=== PATIENT | female | born 1950 | race African-American/Black ===

== ENCOUNTER 2018-01-03 02:22 | Inpatient (IN) | payer MEDICARE, MEDICAID ==
[~2018-01-03] VITALS: Ht 170.2 cm; Wt 108.5 kg
--- NOTE | ~2018-01-03 | OP ---
PATIENT NAME: PEEWEE VANG MEDICAL RECORD: [id number] :52 LOCATION:D. D.2128 ADMISSION DATE:01/03/18 SURGEON: ISIDORO RAMIREZ MD DATE OF OPERATION: 01/04/2018 PREOPERATIVE DIAGNOSES: 1. Gallstones. 2. Elevated LFTs. 3. Coronary artery disease. 4. Diabetes mellitus. 5. Hypertension. POSTOPERATIVE DIAGNOSES: 1. Gallstones. 2. Elevated LFTs. 3. Coronary artery disease. 4. Diabetes mellitus. 5. Hypertension. PROCEDURES: 1. Laparoscopic cholecystectomy with intraoperative cholangiogram. 2. Fluoroscopic interpretation. SURGEON: Isidoro Ramirez MD REPORT OF PROCEDURE: The patient's abdomen was prepped and draped in sterile fashion. A cutdown was made on the superior aspect of the umbilicus. Electrocautery was used to dissect through the subcutaneous tissues, 0 Vicryls were placed in the fascia bilaterally and the fascia was incised with 15-blade. I then bluntly entered the peritoneal cavity and placed a 12-mm [place] port. Under direct visualization, a 5-mm trocar was placed in the epigastrium and 2 more 5-mm trocars were placed in the right subcostal region. The gallbladder was grasped and elevated. There were no signs of any inflammatory changes present. The cystic artery and cystic duct were dissected free. The cystic duct was clipped once proximally and a small opening was made in the cystic duct. There was spillage of some black very small stones as we pushed on the common bile duct. We then inserted a cholangiocath and performed intraoperative cholangiogram. Initially, there was some spillage of contrast into the duodenum, but stone fill in that area and blocked the remaining flow. The stone was present at the ampulla and it was too large to be pushed through with hydraulic pressure. At this point, the cholangiocath was removed. Clips were placed on the cystic duct and this was transected. The cystic artery was then clipped proximally and distally and transected in standard fashion. The gallbladder was taken off the liver bed using electrocautery and placed into the right upper quadrant. Any bleeding from the liver bed was then treated with electrocautery. At this point, the ports and insufflation were then removed and the gallbladder was taken out through the umbilicus. The umbilical fascia was closed with interrupted 0 Vicryls times 3. The wounds were then irrigated out with normal saline and infused with 10 mL of 0.25% Marcaine with epinephrine. The skin incisions were all closed with subcutaneous 5-0 Monocryl and dressed appropriately. COMPLICATIONS: None. CONDITION: Stable. OPERATIVE REPORT [id number] PEEWEE VANG ANESTHESIA: General endotracheal and local. BLOOD LOSS: Minimal. TRANSINT:[id number] Voice Confirmation ID: [id number] DOCUMENT ID: [id number] ISIDORO RAMIREZ MD CC: LEON MOE MD and VESTA DIAZ DO [id number] DICTATION DATE: 01/04/18 1350 EMBEDDED LINUX ENGINEER: 01/04/18 1431 ADM IN [facility] [address] [id number]
[2018-01-03 02:40] VITALS: BP 145/86; BMI 36.0
[2018-01-03] MEDS ORDERED: NORVASC5 MG PO (03:02)
[2018-01-03] MEDS ORDERED: KLONOPIN1 MG PO (03:03)
[2018-01-03] MEDS ORDERED: DEXILANT60 MG PO (03:04)
[2018-01-03] MEDS ORDERED: ASPIRIN EC81 M1 PO (03:05)
[2018-01-03] MEDS ORDERED: PULMICORT180 MCG/AE INH (03:05)
[2018-01-03] MEDS ORDERED: GLIPIZIDE10 MG PO (03:06)
[2018-01-03] MEDS ORDERED: NORCO 7.5/325 T1 TA1 PO (03:07)
[2018-01-03] MEDS ORDERED: COMBIVENT RESPIM4 GM INH (03:10)
[2018-01-03] MEDS ORDERED: SYNTHROID100 MCG PO (03:11)
[2018-01-03] MEDS ORDERED: LISINOPRIL2.5 MG PO (03:11)
[2018-01-03] MEDS ORDERED: CLARITIN 10 MG10 MG PO (03:12)
[2018-01-03] MEDS ORDERED: LOPRESSOR25 MG PO (03:12)
[2018-01-03] MEDS ORDERED: MOBIC7.5 MG PO (03:12)
[2018-01-03] MEDS ORDERED: POTASSIUM CHLO10 ME1 PO (03:14)
[2018-01-03] MEDS ORDERED: MULTIPLE VITAMI1 TA1 PO (03:14)
[2018-01-03 04:00] VITALS: BP 121/54
[2018-01-03 07:00] VITALS: BP 109/56
[2018-01-03 10:54] LABS: BASOPHILS 0.1 % (0-2); EOSINOPHILS 4.4 % (0-7); HEMATOCRIT 43.5 % (36.0-48.0); IMMATURE GRANULOCYTES 0.4 % (0-5); LYMPHOCYTES 6.4 % (15-50); MCH 27.2 pg (26.0-34.0); MCHC 32.2 g/dL (31.0-37.0); MCV 84.5 fL (80.0-100.0); MEAN PLATELET VOLUME 10.4 fL (7.4-10.4); MONOCYTES 9.3 % (2-11); NEUTROPHILS 79.4 % (40-80); PLATELET COUNT 178 10x3/uL (130-400); RBC 5.15 10x6/uL (4.00-5.40); RDW 15.2 % (11.5-14.5); WBC 6.9 10x3/uL (4.8-10.8)
[2018-01-03 11:03] LABS: INR 1.26 (0.85-1.17); PROTIME 15.3 SECONDS (11.6-15.0)
[2018-01-03 11:07] LABS: ALBUMIN 3.1 g/dL (3.4-5.0); ANION GAP 15.6 mmol/L (8-16); BILIRUBIN - TOTAL 4.89 mg/dL (0.2-1.3); CALCIUM 8.9 mg/dL (8.5-10.1); CARBON DIOXIDE 22.6 mmol/L (21.0-32.0); CREATININE - SERUM 1.5 mg/dL (0.6-1.3); POTASSIUM - SERUM 4.2 mmol/L (3.5-5.1); PROTEIN - SERUM 6.9 g/dL (6.4-8.2)
[2018-01-03 18:57] LABS: APPEARANCE HAZY (CLEAR); BILIRUBIN 3+ (NEGATIVE); COLOR AMBER (YELLOW); GLUCOSE 1000 mg/dL (NEGATIVE); KETONE NEGATIVE (NEGATIVE); NITRITE NEGATIVE (NEGATIVE); PROTEIN NEGATIVE (NEGATIVE)
[2018-01-03 19:00] LABS: BACTERIA MODERATE /hpf (NONE SEEN); EPITHELIAL CELLS OCC /hpf (0-5); GRANULAR CAST RARE /lpf (NONE SEEN); HYALINE CAST RARE /lpf (NONE SEEN); RED CELLS - URINE OCC /hpf (0-5)
[2018-01-03 21:39] VITALS: BP 129/74
[2018-01-04] VITALS (9 sets, daily range): BP systolic 91–132; BP diastolic 62–85; Ht 170.2 cm; Wt 108.5 kg
[2018-01-04 05:23] LABS: BASOPHILS 0.3 % (0-2); EOSINOPHILS 6.3 % (0-7); HEMATOCRIT 39.7 % (36.0-48.0); HEMOGLOBIN 12.7 g/dL (12-16); IMMATURE GRANULOCYTES 0.3 % (0-5); MCH 26.7 pg (26.0-34.0); MCV 83.6 fL (80.0-100.0); MEAN PLATELET VOLUME 10.6 fL (7.4-10.4); MONOCYTES 11.5 % (2-11); NEUTROPHILS 69.6 % (40-80); PLATELET COUNT 166 10x3/uL (130-400); RBC 4.75 10x6/uL (4.00-5.40); RDW 15.3 % (11.5-14.5)
[2018-01-04 05:27] LABS: WBC 3.5 10x3/uL (4.8-10.8)
[2018-01-04 05:35] LABS: ALBUMIN 2.7 g/dL (3.4-5.0); ANION GAP 12.5 mmol/L (8-16); BILIRUBIN - TOTAL 3.03 mg/dL (0.2-1.3); CALCIUM 8.4 mg/dL (8.5-10.1); CARBON DIOXIDE 23.8 mmol/L (21.0-32.0); CREATININE - SERUM 1.3 mg/dL (0.6-1.3); POTASSIUM - SERUM 4.3 mmol/L (3.5-5.1); PROTEIN - SERUM 6.2 g/dL (6.4-8.2)
[2018-01-05 04:00] VITALS: BP 176/89
[2018-01-05 04:51] LABS: BASOPHILS 0.1 % (0-2); EOSINOPHILS 1.3 % (0-7); HEMATOCRIT 40.3 % (36.0-48.0); HEMOGLOBIN 12.8 g/dL (12-16); IMMATURE GRANULOCYTES 0.6 % (0-5); LYMPHOCYTES 6.8 % (15-50); MCH 26.4 pg (26.0-34.0); MCHC 31.8 g/dL (31.0-37.0); MCV 83.3 fL (80.0-100.0); MEAN PLATELET VOLUME 10.4 fL (7.4-10.4); MONOCYTES 15.6 % (2-11); NEUTROPHILS 75.6 % (40-80); PLATELET COUNT 191 10x3/uL (130-400); RBC 4.84 10x6/uL (4.00-5.40)
[2018-01-05 04:58] LABS: WBC 6.9 10x3/uL (4.8-10.8)
[2018-01-05 05:08] LABS: ALBUMIN 2.6 g/dL (3.4-5.0); ANION GAP 12.5 mmol/L (8-16); BILIRUBIN - TOTAL 4.33 mg/dL (0.2-1.3); CALCIUM 8.3 mg/dL (8.5-10.1); CARBON DIOXIDE 25.7 mmol/L (21.0-32.0); CREATININE - SERUM 1.5 mg/dL (0.6-1.3); POTASSIUM - SERUM 4.2 mmol/L (3.5-5.1); PROTEIN - SERUM 6.2 g/dL (6.4-8.2)
[2018-01-05 08:51] VITALS: BP 121/64
[2018-01-05 11:29] VITALS: BP 111/56
[2018-01-05 16:50] VITALS: BP 125/78
[2018-01-05 22:25] VITALS: BP 128/71
[2018-01-06 01:27] VITALS: BP 153/99
[2018-01-06 06:28] VITALS: BP 157/91
[2018-01-06 07:03] LABS: BASOPHILS 0.3 % (0-2); EOSINOPHILS 0.9 % (0-7); HEMATOCRIT 37.2 % (36.0-48.0); IMMATURE GRANULOCYTES 1.2 % (0-5); LYMPHOCYTES 8.1 % (15-50); MCH 26.9 pg (26.0-34.0); MCHC 32.3 g/dL (31.0-37.0); MCV 83.4 fL (80.0-100.0); MEAN PLATELET VOLUME 10.3 fL (7.4-10.4); MONOCYTES 14.2 % (2-11); NEUTROPHILS 75.3 % (40-80); PLATELET COUNT 174 10x3/uL (130-400); RBC 4.46 10x6/uL (4.00-5.40); RDW 15.4 % (11.5-14.5); WBC 6.9 10x3/uL (4.8-10.8)
[2018-01-06 07:20] LABS: ALBUMIN 2.4 g/dL (3.4-5.0); ANION GAP 10.7 mmol/L (8-16); BILIRUBIN - TOTAL 5.87 mg/dL (0.2-1.3); CALCIUM 8.4 mg/dL (8.5-10.1); CARBON DIOXIDE 26.5 mmol/L (21.0-32.0); POTASSIUM - SERUM 4.2 mmol/L (3.5-5.1); PROTEIN - SERUM 6.1 g/dL (6.4-8.2)
[2018-01-06 07:27] LABS: CREATININE - SERUM 1.1 mg/dL (0.6-1.3)
[2018-01-06 08:12] VITALS: BP 108/53
[2018-01-06 12:15] VITALS: BP 114/64
[2018-01-06 16:42] VITALS: BP 113/67
[2018-01-06 19:00] VITALS: BP 136/82
[2018-01-07 00:35] VITALS: BP 135/95
[2018-01-07 04:00] VITALS: BP 105/66
[2018-01-07 05:39] LABS: BASOPHILS 0.2 % (0-2); EOSINOPHILS 1.3 % (0-7); HEMATOCRIT 35.9 % (36.0-48.0); HEMOGLOBIN 11.5 g/dL (12-16); IMMATURE GRANULOCYTES 3.1 % (0-5); LYMPHOCYTES 11.9 % (15-50); MCH 26.4 pg (26.0-34.0); MCV 82.5 fL (80.0-100.0); MEAN PLATELET VOLUME 10.6 fL (7.4-10.4); MONOCYTES 12.9 % (2-11); NEUTROPHILS 70.6 % (40-80); RBC 4.35 10x6/uL (4.00-5.40); RDW 15.2 % (11.5-14.5); WBC 8.3 10x3/uL (4.8-10.8)
[2018-01-07 05:59] LABS: ALBUMIN 2.4 g/dL (3.4-5.0); ANION GAP 11.6 mmol/L (8-16); BILIRUBIN - TOTAL 7.5 mg/dL (0.2-1.3); CALCIUM 8.4 mg/dL (8.5-10.1); CARBON DIOXIDE 25.5 mmol/L (21.0-32.0); POTASSIUM - SERUM 4.1 mmol/L (3.5-5.1); PROTEIN - SERUM 6.1 g/dL (6.4-8.2)
[2018-01-07 06:00] LABS: PLATELET COUNT 212 10x3/uL (130-400)
[2018-01-07 08:35] VITALS: BP 130/67
[2018-01-07 12:40] VITALS: BP 118/63
[2018-01-07 15:23] VITALS: BP 145/75
[2018-01-07 21:38] VITALS: BP 144/76
[2018-01-08 01:44] VITALS: BP 118/58
[2018-01-08 05:40] VITALS: BP 128/66
[2018-01-08 10:38] LABS: ALBUMIN 2.2 g/dL (3.4-5.0); ANION GAP 11.9 mmol/L (8-16); BILIRUBIN - TOTAL 3.9 mg/dL (0.2-1.3); CALCIUM 8.2 mg/dL (8.5-10.1); CARBON DIOXIDE 24.1 mmol/L (21.0-32.0)
[2018-01-08 11:33] LABS: BASOPHILS 0.9 % (0-2); EOSINOPHILS 1.9 % (0-7); HEMATOCRIT 35.5 % (36.0-48.0); HEMOGLOBIN 11.7 g/dL (12-16); IMMATURE GRANULOCYTES 5.6 % (0-5); LYMPHOCYTES 15.2 % (15-50); MCH 27.1 pg (26.0-34.0); MCV 82.2 fL (80.0-100.0); MEAN PLATELET VOLUME 10.5 fL (7.4-10.4); MONOCYTES 9.7 % (2-11); NEUTROPHILS 66.7 % (40-80); PLATELET COUNT 206 10x3/uL (130-400); RBC 4.32 10x6/uL (4.00-5.40); RDW 15.6 % (11.5-14.5); WBC 8.6 10x3/uL (4.8-10.8)
[2018-01-08 12:02] VITALS: BP 137/76
[2018-01-08 15:37] VITALS: BP 157/83
[2018-01-08 20:54] VITALS: BP 137/66
[2018-01-09 04:14] LABS: BASOPHILS 0.5 % (0-2); EOSINOPHILS 2.9 % (0-7); HEMATOCRIT 36.2 % (36.0-48.0); HEMOGLOBIN 12.5 g/dL (12-16); IMMATURE GRANULOCYTES 6.1 % (0-5); MCH 28.3 pg (26.0-34.0); MCHC 34.5 g/dL (31.0-37.0); MCV 82.1 fL (80.0-100.0); MEAN PLATELET VOLUME 10.1 fL (7.4-10.4); NEUTROPHILS 61.5 % (40-80); PLATELET COUNT 218 10x3/uL (130-400); RBC 4.41 10x6/uL (4.00-5.40); RDW 15.6 % (11.5-14.5); WBC 8.4 10x3/uL (4.8-10.8)
[2018-01-09 04:34] LABS: ALBUMIN 2.2 g/dL (3.4-5.0); ANION GAP 11.4 mmol/L (8-16); BILIRUBIN - TOTAL 2.2 mg/dL (0.2-1.3); CALCIUM 8.1 mg/dL (8.5-10.1); CARBON DIOXIDE 27.7 mmol/L (21.0-32.0); POTASSIUM - SERUM 4.1 mmol/L (3.5-5.1); PROTEIN - SERUM 6.1 g/dL (6.4-8.2)
[2018-01-09 06:52] VITALS: BP 127/74
[2018-01-09 10:06] VITALS: BP 138/63
[2018-01-09 12:31] VITALS: BP 147/77
== END 2018-01-09 16:17 | disposition home or self-care (01) | DRG 418 ==
LOC: D.M2 02:22
PROVIDERS: Family Medicine; Internal Medicine Gastroenterology; Internal Medicine Nephrology; Surgery
PROC: 0FT44ZZ Resection of Gallbladder, Percutaneous Endoscopic Approach (ICD-10-PCS; 2018-01-04)
PROC: BF101ZZ Fluoroscopy of Bile Ducts using Low Osmolar Contrast (ICD-10-PCS; 2018-01-04)
PROC: BF101ZZ Fluoroscopy of Bile Ducts using Low Osmolar Contrast (ICD-10-PCS; 2018-01-05)
PROC: 0FC98ZZ Extirpation of Matter from Common Bile Duct, Via Natural or Artificial Opening Endoscopic (ICD-10-PCS; principal; 2018-01-05 15:04)
PROC: 0FC98ZZ Extirpation of Matter from Common Bile Duct, Via Natural or Artificial Opening Endoscopic (ICD-10-PCS; 2018-01-07)
PROC: 0F798DZ Dilation of Common Bile Duct with Intraluminal Device, Via Natural or Artificial Opening Endoscopic (ICD-10-PCS; 2018-01-07)
PROC: BF101ZZ Fluoroscopy of Bile Ducts using Low Osmolar Contrast (ICD-10-PCS; 2018-01-07)
DX: K80.71 Calculus of gallbladder and bile duct without cholecystitis with obstruction (principal); N17.9 Acute kidney failure, unspecified; E80.6 Other disorders of bilirubin metabolism; I10 Essential (primary) hypertension; I25.10 Atherosclerotic heart disease of native coronary artery without angina pectoris; E11.9 Type 2 diabetes mellitus without complications; Z87.891 Personal history of nicotine dependence

== ENCOUNTER 2018-02-08 12:59 | Day surgery (SDC) | payer MEDICARE, MEDICAID ==
[~2018-02-08] VITALS: Ht 170.2 cm; Wt 103.6 kg
--- NOTE | ~2018-02-08 | OP ---
PATIENT NAME: PEEWEE VANG MEDICAL RECORD: [id number] :52 LOCATION:[facility] ADMISSION DATE: SURGEON: VESTA DIAZ DO DATE OF OPERATION: 02/08/2018 PROCEDURE: EGD with foreign body removal, which is a biliary stent placed on an ERCP over one month ago. SCOPE: Olympus video gastroscope. MEDICATIONS: Propofol 120 mg IV per anesthesia. ESTIMATED BLOOD LOSS: Minimal. COMPLICATIONS: None. FINDINGS: Informed consent was given. The patient was made comfortable with the above medication. After reaching an adequate level of sedation by slow IV push, the patient was placed on her left side. The endoscope was advanced under direct visualization to the second portion of the duodenum where the biliary stent was encountered. The upper, middle, and lower thirds of the esophagus appeared normal. At the GE junction, there was evidence of LA class A reflux-induced esophagitis. The endoscope was advanced beyond the GE junction into the stomach and retroflexed to view the cardia, which revealed a small sliding hiatal hernia. The remainder of the stomach appeared within normal limits. The endoscope was advanced beyond the pylorus into the duodenum and down to the second portion of the duodenum, where the stent was visualized. A snare was placed around the stent and was used to remove the stent. The endoscope was withdrawn from the patient along with the stent. The patient tolerated the procedure well and there were no complications. IMPRESSION: 1. Reflux esophagitis grade A. 2. Small sliding hiatal hernia. 3. Status post biliary stent removal. PLAN AND RECOMMENDATIONS: 1. Discharge home when recovery parameters are met. 2. Continue current diet. 3. Continue current medications. 4. Follow up with GI as needed. TRANSINT:[id number] Voice Confirmation ID: [id number] DOCUMENT ID: [id number] VESTA DIAZ DO at 1119 CC: [id number] DICTATION DATE: 02/08/18 1609 PROJECT LANDSCAPE ARCHITECT: 02/08/[address] [facility] 02/08/18 [facility] [address] [place] [address]
[~2018-02-08 12:59] MED LIST: ASPIRIN EC81 M1 PO; CLARITIN 10 MG10 MG PO; COMBIVENT RESPIM4 GM INH; DEXILANT60 MG PO; GLIPIZIDE10 MG PO; KLONOPIN1 MG PO; LISINOPRIL2.5 MG PO; LOPRESSOR25 MG PO; MOBIC7.5 MG PO; MULTIPLE VITAMI1 TA1 PO; NORCO 7.5/325 T1 TA1 PO; NORVASC5 MG PO; POTASSIUM CHLO10 ME1 PO; PULMICORT180 MCG/AE INH; SYNTHROID100 MCG PO
[2018-02-08] MEDS ORDERED: MOBIC7.5 MG PO (13:42)
[2018-02-08 13:47] VITALS: BP 110/66; Ht 170.2 cm; Wt 103.6 kg
[2018-02-08 14:16] LABS: HEMATOCRIT 40.9 % (36.0-48.0); HEMOGLOBIN 12.7 g/dL (12-16); MCHC 31.1 g/dL (31.0-37.0); MEAN PLATELET VOLUME 10.5 fL (7.4-10.4); RBC 4.7 10x6/uL (4.00-5.40); RDW 15.8 % (11.5-14.5); WBC 6.6 10x3/uL (4.8-10.8)
[2018-02-08 14:38] LABS: ANION GAP 13.6 mmol/L (8-16); CALCIUM 9.5 mg/dL (8.5-10.1); CARBON DIOXIDE 24.6 mmol/L (21.0-32.0); CREATININE - SERUM 1.3 mg/dL (0.6-1.3); POTASSIUM - SERUM 4.2 mmol/L (3.5-5.1)
[2018-02-08 16:23] LABS: ALBUMIN 3.5 g/dL (3.4-5.0); BILIRUBIN - TOTAL 0.62 mg/dL (0.2-1.3)
== END 2018-02-08 17:00 | disposition home or self-care (01) ==
LOC: D.OPS 12:59
PROVIDERS: Anesthesiology
DX: Z45.89 Encounter for adjustment and management of other implanted devices (principal); I25.10 Atherosclerotic heart disease of native coronary artery without angina pectoris; I10 Essential (primary) hypertension; E11.9 Type 2 diabetes mellitus without complications; J44.9 Chronic obstructive pulmonary disease, unspecified; K21.9 Gastro-esophageal reflux disease without esophagitis; N17.9 Acute kidney failure, unspecified; Z01.812 Encounter for preprocedural laboratory examination